=== PATIENT | male | born 1955 ===

== ENCOUNTER 2018-04-03 06:08 | Day surgery (SDC) | payer OTHER ==
[2017-12-28 09:23] VITALS: PULSE 73
[2018-04-03] MEDS ORDERED: Lidocaine PF 2% (5 ml) Inj (For Cardiac Arrhy) ONE (06:43)
[2018-04-03] MEDS ORDERED: Verapamil 2 ML ONE (06:44)
[2018-04-03] MEDS ORDERED: Phenylephrine 10 mg/ml Inj ONE (06:44)
[2018-04-03] MEDS ORDERED: Adenosine 90 mg/30mL IV ONE (06:44)
[2018-04-03] MEDS ORDERED: Iodixanol 320 MG/ML 200 ML BOTTLE IV ONE (06:45)
[2018-04-03] MEDS ORDERED: Iohexol 350mgl/ml 50 ML ONE (06:45)
[2018-04-03] MEDS ORDERED: Nitroglycerin 50mg in D5W 0 MG/0 ML BOTTLE IV ONE (06:45)
[2018-04-03] MEDS ORDERED: Iodixanol 320 MG/ML 100 ML BOTTLE IV ONE ×2 (06:45→10:17)
[2018-04-03] MEDS ORDERED: Heparin 2,000 ML IV ONE (06:45)
[2018-04-03 06:56] VITALS: BMI 34.8
[2018-04-03 07:00] LABS: BASO # 0.06 K/mm3 (0.0-2.0); BASO % 0.7 % (0.0-3.0); EOS # 0.4 (0.0-0.7); EOS % 4.9 % (1.5-5.0); LYMPH # 1.9 (1.2-3.4); LYMPH % 22.9 % (22.0-35.0); MEAN CELL VOLUME 87.6 fl (80.0-105.0); MEAN CORPUSCULAR HEMOGLOBIN 29.9 pg (25.0-35.0); MEAN CORPUSCULAR HGB CONC 34.1 g/dl (31.0-37.0); MEAN PLATELET VOLUME 9.9 fl (7.0-11.0); MONO # 0.8 (0.1-0.6); MONO % 9.8 % (1.0-6.0); RBC 4.68 10^6/uL (3.5-6.1); RED CELL DISTRIBUTION WIDTH 13.6 % (11.5-14.5); WHITE BLOOD COUNT 8.4 10^3/uL (4.5-11.0)
[2018-04-03 07:01] LABS: BLOOD UREA NITROGEN 17 mg/dL (7-21); GFR NON-AFRICAN AMERICAN > 60; HDL CHOLESTEROL 41 mg/dL (29-60)
[2018-04-03 07:02] VITALS: O2SAT 99
[2018-04-03 07:08] LABS: INR 1.16; PARTIAL THROMBOPLASTIN TIME 35.4 Seconds (26.9-38.3); PROTHROMBIN TIME 13.1 SECONDS (9.4-12.5)
[2018-04-03 07:12] LABS: LDL CHOLESTEROL 54 mg/dL (0-129)
[2018-04-03] MEDS ORDERED: Midazolam 2 MG/2 ML VIAL ONE ×2 (08:56→09:16)
[2018-04-03] MEDS ORDERED: DiphenhydrAMINE 50 mg/ml Inj ONE (09:24)
[2018-04-03] MEDS ORDERED: Bacitracin 500 Units/gm Oint Foilpak UD TOP ONE (10:33)
[2018-04-03] MEDS ORDERED: Sodium Chloride 0.9% 1,000 ML IV SCH (10:45)
--- NOTE | 2018-04-03 11:50 | CARD ---
APPROVED REPORT Date of service: 04/03/2018 EKG Measurement Heart [id number] <Conclusion> Atrial fibrillation. Inferior infarct, age undetermined Anterolateral infarct, age undetermined ST-T Changes.
[2018-04-03] MEDS ORDERED: Bacitracin 500 Units/gm Oint Foilpak UD ONE (13:54)
[2018-04-03 17:03] VITALS: RESP 20
[2018-04-03 17:32] VITALS: BP 142/76; PULSE 80; TEMP 97.9
--- NOTE | 2018-04-03 19:09 | CARDCATH ---
PROCEDURE DATE: 04/03/2018 INDICATIONS: Mr. Rajesh Brown is a 62-year-old male, who had undergone a diagnostic cardiac cath a few months ago at which time he was noted to have high-grade LAD and circumflex stenosis. Because of ongoing acute cholecystitis. It was decided to stage the patient and brought him back for intervention. The patient had undergone cholecystostomy and after removal of the tube, he was brought back for PCI of the LAD and obtuse marginal branch. PROCEDURE PERFORMED: Left heart catheterization with selective left and right coronary angiogram, left ventriculogram, PTCA, stenting of mid LAD with deployment of 2.5 x 34 Holcomb drug-eluting stent, regeneration from 80% down to 0% and GUANAKITO-3 flow, PTCA stenting of obtuse marginal branch with deployment of 3.5 x 34 Arias drug-eluting stent, regeneration from 80% down to 0% and GUA[place]KITO-3 flow, PTCA stenting of distal left circumflex coronary artery with deployment of 2.5 x 80 Arias drug-eluting stent, regeneration from 90% down to 0% and GUANAKITO-3 flow, a 6-[place] left radial arterial access, wristband for hemostasis. ANGIOGRAPHIC FINDINGS: Left main is a large-sized vessel, bifurcates into left anterior descending and left circumflex coronary artery. Left anterior descending artery is a large-sized vessel, proximal and mid nonobstructive, gives off to two medium-sized diagonal branches. The mid LAD has a high-grade stenosis at the bifurcation of the diagonal, about 85% to 90% stenosis with a diffuse long lesion passed the diagonal about 80%. Subsequently, left circumflex in the groove gives off to large obtuse marginal branch which has a mid 85% stenosis of circumflex runs in the AV groove, distally has a 95% stenosis. RCA is a large-sized vessel of the proximal with nonobstructive 40% stenosis. Right PDA has a nonobstructive 55% stenosis, interventions were found. LAD was initially attempted to FFR, but because of device failure it was decided to proceed with intervention of the mid LAD. Lesion was predilated with 2.0 balloon and subsequently stented with a 2.5 x 30 Holcomb drug-eluting stent. Finally, left circumflex obtuse marginal branch was wide. It was predilated and subsequently stented with 3.5 x 30 Holcomb drug-eluting stent. Subsequently, attention was then paid to the [place] vessel of left circumflex. The lesion was rewired with a fresh wire and with a 2.0 balloon. Subsequently stented with a 2.5 x 18 Arias drug-eluting stent. Final angiograms done showed regeneration down to 0% and GUANAKITO-3 flow. IMPRESSION: Successful percutaneous transluminal coronary angioplasty stenting of mid left anterior descending, mid obtuse marginal, and distal left circumflex with drug-eluting stent, normal ejection fraction. RECOMMENDATIONS: Continue the patient on dual antiplatelet therapy, guideline-directed therapy for CAD. The patient is to await his cholecystectomy, which can be arranged in eight to ten weeks' time. Chidi Sebastian MD
== END 2018-04-03 21:36 | disposition home or self-care (01) ==
LOC: CATH 06:08 → 2RSO 10:52 → CATH 21:36
PROVIDERS: ATTEND Internal Medicine Interventional Cardiology
DX: I25.118 Atherosclerotic heart disease of native coronary artery with other forms of angina pectoris (principal); I48.2 Chronic atrial fibrillation; E11.9 Type 2 diabetes mellitus without complications; I10 Essential (primary) hypertension
CPT/HCPCS: 36415; 80048; 80061; 83036; 85025; 85175; 85610; 85730; 86850; 86900; 93005; 93458; 99152; 99153; C1725 ×3; C1769 ×4; C1874 ×3; C1887; C1894; C9600; C9601; J0153; J1200; J1644 ×2; J2250; J3010; J7030; Q9966; Q9967 ×2